=== PATIENT | male | born 1985 | race Caucasian/White ===

== ENCOUNTER 2023-07-05 14:01 | Emergency (ER) | payer MEDICAID, SELFPAY ==
[2023-07-05 14:32] VITALS: BP 156/105; PULSE 99; RESP 16; TEMP 36.6; O2SAT 98; BMI 36.5
--- NOTE | 2023-07-05 14:52 | ED_ITS ---
HPI - Extremity Problem General: Chief complaint: Extremity Problem,Nontraumatic Stated complaint: left hip pain Time Seen by Provider: 07/05/23 14:49 History of Present Illness: 38-year-old male patient comes in today for complaints of left hip/buttock pain on and off for the last 2 years. Patient did report an initial injury when he fell out of an attic in the trailer. 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 Patient appears in mild pain at rest. Patient appears nontoxic. Patient has a history of hypertension and obesity. Review of Systems General: Reports: 10 or more systems reviewed and unremarkable except in HPI and below Musc: Reports: joint pain (Left hip) [facility] ED PFSH: Medical History Allergic rhinitis due to allergen Chronic low back pain without sciatica Hypertension Obesity (BMI 30-39.9) Family History Other CAD (coronary artery disease) Chronic kidney disease (CKD) Diabetes Hyperlipidemia Hypertension Stroke Social History (Updated 07/11/21 @ 12:50 by Delia Adams LPN) Smoking and tobacco/nicotine status: current every day tobacco/nicotine user smokeless tobacco Alcohol intake: current Alcohol intake frequency: holidays/special occasions only Substance/Drug Use: never Marital status: Number of children: 4 Number of grandchildren: 0 Current occupational status: employed Physical Exam Const: COMMON NORMALS: alert HENMT: HEAD & SCALP: normal to inspection Neck/C-Spine: COMMON NORMALS: full ROM Resp: COMMON NORMALS: normal respiratory effort and clear to auscultation bilaterally AUSCULTATION: clear to auscultation bilaterally Cardio: COMMON NORMALS: regular rate RATE: regular rate GI: COMMON NORMALS: Soft to palpation PALPATION: Yes Soft to palpation Back/Pelvis: COMMON NORMALS: thoracic and lumbar spine normal to inspection Extremity: LEFT LOWER EXTREMITY: Yes hip joint (Posterior hip/buttock tenderness on palpation) Neuro: SENSORIUM/ORIENTATION: Yes alert Skin: COMMON NORMALS: turgor normal GENERAL SKIN EXAM: turgor normal Course Vital Signs: Vital signs: Vital Signs Temperature 97.9 F 07/05/23 14:32 Pulse Rate 99 07/05/23 14:32 Respiratory Rate 16 07/05/23 14:32 Blood Pressure 156/105 07/05/23 14:32 Pulse Oximetry 98 07/05/23 14:32 Oxygen Delivery Me thod Room Air 07/05/23 14:32 MDM - Extremity (Nontraumatic) Medical Decision Making Patient presents with recurrent left hip pain after an injury 2 to 3 years ago from falling out of an attic in a trailer. Patient also reports several other incidents during this time that has aggravated his pain. Patient reports no new injury. Patient is ambulatory. Patient reports pain is mainly in the buttock area. On exam patient has tenderness to the left buttock. Patient has normal range of motion. Differential diagnosis includes arthritis, bursitis, sciatica, sacroiliac dysfunction. X-ray was unremarkable. Reviewed exam with patient recommended diclofenac for inflammation and pain. Patient was recommended to try to maintain activity is much as possible. I went ahead and referred patient to orthopedics for further evaluation due to the recurrent nature of the pain for the last 2 years. I suspect probably bursitis or impingement syndrome. Patient reports understanding and agreed to plan. Lab Data Radiology Impressions Hip/Pelvis X-Ray 07/05/23 14:53 IMPRESSION: No acute findings. All radiology interpretation(s) finalized by discharge Discharge Plan Discharge Patient Disposition: Home Clinical Impression: Posterior pain of left hip Condition: Stable Prescriptions: New diclofenac sodium 75 mg tablet,delayed release (DR/EC) 75 mg PO BID Qty: 20 0RF No Action amlodipine 5 mg tablet See Rx Instructions .ROUTE .COMPLEX Qty: 90 1RF Dose Instruction: TAKE ONE TABLET BY MOUTH ONCE DAILY FOR BLOOD PRESSURE Rx Instructions: TAKE ONE TABLET BY MOUTH ONCE DAILY FOR BLOOD PRESSURE baclofen 10 mg tablet See Rx Instructions .ROUTE .COMPLEX Qty: 60 2RF Dose Instruction: TAKE ONE TABLET BY MOUTH TWICE A DAY Rx Instructions: TAKE ONE TABLET BY MOUTH TWICE A DAY Discharge Orders: Discharge ED (Routine); Ordered 07/05/23 Ordered By: Abdon Gracia Referrals: Vitaly Dempsey MD [Primary Care Provider] - Patient Instructions: Musculoskeletal Pain (ED) Activity Restrictions/Additional Instructions: Use diclofenac for pain and discomfort. Use ice and heat for further pain relief. Follow-up with primary care as needed. Case management will contact you regarding a follow-up appointment with orthopedist for further evaluation and treatment. 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
--- NOTE | 2023-07-05 14:53 | XRR_ITS ---
PROCEDURE INFORMATION: Exam: XR Left Hip Exam date and time: 07/05/2023 2:55 PM Age: 38 years old Clinical indication: Hip pain; Left hip TECHNIQUE: Imaging protocol: Radiologic exam of the left hip. Views: 2 or 3 views hip with pelvis when performed. COMPARISON: No relevant prior studies available. FINDINGS: Bones/joints: Unremarkable. No acute fracture. Soft tissues: Unremarkable. XR/XR hip LT 2-3V wo/w pel* [id number] IMPRESSION: No acute findings.
[2023-07-05 15:58] VITALS: BP 156/105; PULSE 99; RESP 16; TEMP 36.6; O2SAT 98
--- NOTE | 2023-07-06 08:27 | DCPLANNER ---
Message sent to Ortho for a follow up on a recurrent left hip pain.
== END 2023-07-05 15:59 | disposition home or self-care (01) ==
PROVIDERS: Emergency Provider Nurse Practitioner Family; PCP Family Medicine Adult Medicine
DX: M25.552 Pain in left hip (principal); I10 Essential (primary) hypertension; F17.220 Nicotine dependence, chewing tobacco, uncomplicated
CPT/HCPCS: 73502; 99283

== ENCOUNTER → 2023-08-11 13:11 | Outpatient (BNVA) | payer MEDICAID, SELFPAY | PROVIDERS: PCP Family Medicine Adult Medicine; Visit Provider Orthopaedic Surgery | DX: M54.16 Radiculopathy, lumbar region (principal); G89.29 Other chronic pain; M54.9 Dorsalgia, unspecified; M54.50 Low back pain, unspecified | CPT/HCPCS: 72110 ==

== ENCOUNTER → 2023-09-08 15:22 | Outpatient (CLI) | payer BC, MEDICAID, SELFPAY ==
--- NOTE | 2023-09-08 16:00 | MR_ITS ---
WS: [id number] MRI LUMBAR SPINE NONCONTRAST TECHNIQUE: Sagittal T1, T2 and STIR imaging. Axial T1 and T2 imaging. CLINICAL INFORMATION: Back Pain COMPARISON: None. FINDINGS: Mild lumbar curve. No acute compression. No high-grade central canal stenosis. 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 L1-L2: Normal. L2-L3: Mild facet arthropathy. Spinal canal and foramen are patent. L3-L4: Tiny LEFT foraminal protrusion with mild LEFT foraminal narrowing. RIGHT foramen is patent. Mi ld facet arthropathy. L4-L5: Mild annular bulging. Mild facet arthropathy. Far RIGHT foraminal protrusion with mild RIGHT a nd no significant LEFT foraminal narrowing. Mild facet arthropathy. L5-S1: Slight retrolisthesis. Small LEFT subarticular protrusion impinges the LEFT S1 nerve root in t he subarticular recess. Mild facet arthropathy. Large LEFT foraminal extrusion the exiting L5 nerve r oot with moderate to severe LEFT foraminal narrowing. Recommend correlation LEFT L5 nerve root sympto ms. RIGHT foramen is patent. Mild facet arthropathy. Visualized pelvic bony structures: Normal. Paravertebral soft tissues: Normal. MR/MR lumbar spine wo con* [id number] IMPRESSION: 1. Mild lumbar curve. No acute compression. No high-grade central canal stenos is. 2. Large LEFT L5-S1 foraminal extrusion impinges the exiting L5 nerve root wit h moderate to severe LEFT foraminal narrowing. Recommend correlation with LEFT L5 nerve root symptoms. 3. Slight narrowing of the LEFT L5-S1 subarticular recess. Slight impingement LEFT S1 nerve root. 4. LEFT foraminal protrusion L3-4 with slight contact of the exiting LEFT L3 n erve root. 5. Mild RIGHT L4-5 foraminal narrowing. 6. Mild facet arthropathy L3-L5. 7. L5 is partially sacralized on the LEFT.
== END | disposition home or self-care (01) ==
LOC: RAD 15:22
PROVIDERS: PCP Family Medicine Adult Medicine; Visit Provider Orthopaedic Surgery
DX: M99.63 Osseous and subluxation stenosis of intervertebral foramina of lumbar region (principal); G54.4 Lumbosacral root disorders, not elsewhere classified
CPT/HCPCS: 72148